=== PATIENT | male | born 1990 | race Caucasian/White ===

== ENCOUNTER 2021-02-15 21:27 | Emergency (ER) | payer OTHER, MEDICAID, SELFPAY ==
[2021-02-15 21:33] VITALS: BP 145/81; PULSE 92; RESP 20; TEMP 36.7; O2SAT 99
--- NOTE | 2021-02-15 22:54 | ED_ITS ---
HPI - Skin/Abscess/Foreign Bdy General Chief complaint: Skin/Abscess/Foreign Body Stated complaint: ?boil on back of right hand Time Seen by Provider: 02/15/21 22:38 Source: patient Mode of arrival: Ambulatory History of Present Illness HPI narrative: A 31-year-old male here for evaluation of what he thinks is a boil on the back of his right hand. He states there was a area that earlier today started become red and swollen. He picked the area. He states that it did drain what look like purulent material. No fevers. There is redness around the area. No fevers. Related Data Previous Rx's Medication Instructions Recorded cephalexin 500 mg capsule 500 mg PO QID 5 Days #20 cap 02/15/21 Review of Systems Musculoskeletal Musculoskeletal: Reports system reviewed and no additional complaints, except as documented Integumentary/Breasts Skin/Breast: Reports system reviewed and no additional complaints, except as documented and Reports as per HPI Neurologic Neurologic: Reports system reviewed and no additional complaints, except as documented Hematologic/Lymphatic On Anticoagulants: No Patient History Medical History Healthy adult Social History lives independently: Yes Exam Initial Vital Signs Initial Vital Signs: Vital Signs Temperature 98.1 F 02/15/21 21:33 Pulse Rate 92 H 02/15/21 21:33 Respiratory Rate 20 02/15/21 21:33 Blood Pressure 145/81 H 02/15/21 21:33 Pulse Oximetry 99 02/15/21 21:33 Cardio Pulses: radial pulses present on the right Skin Other: Patient has a pinpoint areas with what appears to be a scab over the dorsum of the right hand. There is surrounding area of erythema and warmth to the area. Not actively draining. Neuro Sensory Exam: no sensory deficits noted Course Orders Ordered: Discontinued Medications Cephalexin HCl (Cephalexin 250 Mg Capsule) 500 mg PO NOW ONE Stop: 02/15/21 22:55 Last Admin: 02/15/21 23:04 Dose: 500 mg Documented by: MARY Vital Signs Vital signs: Vital Signs - 8 hr 02/15/21 21:33 Temperature 98.1 F Pulse Rate 92 H Respiratory Rate 20 Blood Pressure 145/81 H Pulse Oximetry 99 MDM - Skin/Abscess/Foreign Bdy MDM Narrative Medical decision making narrative: There does appear to have been an abscess that has spontaneously drained. There is surrounding erythema. Because of this will start him on antibiotics. There is nothing to culture currently. Patient is nontoxic appearing. No indication for admission to the hospital. Was sent home with a prescription for antibiotics. Is given return precautions. He expressed understanding and agreement. Discharge Plan Departure Patient Disposition: Home Clinical Impression: Cellulitis Instructions: DI for Cellulitis -- Adult Activity Restrictions/Additional Instructions: Based on your presentation today I do feel that we should start you on antibiotics. The prescription was sent to [facility]. Your 1st dose was given here in the emergency department. You can wash your hands like normal. Return to the emergency department for any new or worsening symptoms Prescriptions: New cephalexin 500 mg capsule 500 mg PO QID 5 Days Qty: 20 0RF
[2021-02-15] MEDS: cephALEXin 250 MG CAPSULE 500 MG PO (23:04)
== END 2021-02-15 23:11 | disposition home or self-care (01) ==
PROVIDERS: Emergency Provider Emergency Medicine
DX: L03.113 Cellulitis of right upper limb (principal)
CPT/HCPCS: 99283